=== PATIENT | male | born 1960 | race Caucasian/White ===

== ENCOUNTER → 2017-08-19 | Outpatient (CLI) | payer OTHER ==
[~2017-08-19] MED LIST: AMOXICILLIN 50500 MG PO; ASPIRIN 325MG325 MG PO; ATIVAN1 M1 PO; BENTYL GENERIC10 MG PO; BYSTOLIC5 MG PO; CRESTOR10 MG PO; DEXILANT60 MG PO; DIAZEPAM5 MG PO; FAMOTIDINE 20MG20 MG PO; HYDROMORPHONE 2M2 MG PO; HYOSCYAMINE0.125 M1 PO; KEFLEX 500MG.500 MG PO; MECLIZINE25 MG PO; MEDROL 4MG. DOSE4 MG PO; PROVENTIL0.09 MG/A1 IH; REGLAN 10 MG TA10 MG PO; TESSALON PERLE100 M1 PO; ZITHROMAX Z PA250 MG PO
--- NOTE | 2017-08-20 11:21 | RADIOLOGY REPORT PS360 ---
LUMBAR SPINE COMP W/BEND VIEWS COMPARISON: None HISTORY: Chronic low back pain TECHNIQUE: AP lateral and oblique views and spot view lumbosacral junction FINDINGS: There is straightening of the normal curvature. There are multilevel degenerative changes with disc space narrowing most prominent at L4-5 level with marginal ossific spurring noted. There are hypertrophic facet changes at L4-5 and L5-S1 and there appears be possible bony spinal stenosis lower lumbar spine. There is prominent anterior osteophytic spurring at the T12-L1 level as well. Flexion and extension views were obtained as well filling somewhat decreased range of motion. There is no pars defect. IMPRESSION: Multilevel degenerative changes with hypertrophic facet changes and possible bony spinal stenosis and suggest consideration of a follow-up CT scan lumbar spine for better evaluation of possible bony spinal stenosis.
--- NOTE | 2017-08-20 11:25 | RADIOLOGY REPORT PS360 ---
THORACIC SPINE AP LAT-2VIEW COMPARISON: CT scan of chest 09/18/2012 HISTORY: Generalized back pain TECHNIQUE: AP and lateral views and swimmer's view cervicothoracic junction FINDINGS: There is normal curvature and alignment. There is multilevel anterior and lateral spurring noted most prominent at the T8-9 and T9-10 and T10-11 levels. All pedicles are intact and there is no paraspinal mass. The cervical thoracic junction is poorly visualized with a swimmer's projection. IMPRESSION: Moderate urine changes lower thoracic spine basically stable and unchanged from the appearance of the thoracic spine on the previous CT scan in September 2012
== END ==
LOC: RAD 16:03
DX: M54.30 Sciatica, unspecified side (principal); M51.26 Other intervertebral disc displacement, lumbar region; M48.07 Spinal stenosis, lumbosacral region